=== PATIENT | male | born 1965 | race Caucasian/White ===

== ENCOUNTER 2017-03-21 10:08 | Day surgery (SDC) | payer OTHER ==
[2017-03-18 08:50] VITALS: BMI 31.0
[~2017-03-21 10:08] MED LIST: LACTATED RINGERS 1,000 ML IV SCH
[2017-03-21 10:34] VITALS: RESP 16; TEMP 96.5
[2017-03-21] MEDS ORDERED: LIDOCAINE 1% 20 ML VIAL (10MG/ML) FOR IV START INTRADERMA ONE (10:43)
[2017-03-21] MEDS ORDERED: LIDOCAINE 1% INJ 10MG/ML (20 ML MDV) ONE (11:06)
[2017-03-21] MEDS ORDERED: PROPOFOL 10 MG/ML 20 ML VIAL IV ONE (11:06)
--- NOTE | 2017-03-21 11:25 | P.GSHP ---
History of Present Illness H&P Date: 03/21/17 Chief Complaint: Screening colonoscopy This a 51-year-old male referred from Dr. mahan. Patient presents today for screening colonoscopy. He denies a significant GI complaints. - Constitutional Constitutional: Reports as per HPI Past Medical History Past Medical History: No Reported History History of Any Multi-Drug Resistant Organisms: None Reported Additional Past Surgical History / Comment(s): colonoscopy Past Anesthesia/Blood Transfusion Reactions: No Reported Reaction Past Psychological History: No Psychological Hx Reported Smoking Status: Never smoker Past Alcohol Use History: Occasional Past Drug Use History: None Reported - Past Family History Mother Family Medical History: No Reported History Medications and Allergies Home Medications Medication Instructions Recorded Confirmed Type Dextroamphetamine/Amphetamine 20 mg PO DAILY 03/18/17 03/21/17 History [Adderall] Allergies Allergy/AdvReac Type Severity Reaction Status Date / Time No Known Allergies Allergy Verified 03/18/17 08:46 Surgical - Exam Vital Signs Temp Pulse Resp BP Pulse Ox 96.5 F L 78 16 155/96 96 03/21/17 10:31 03/21/17 10:31 03/21/17 10:31 03/21/17 10:31 03/21/17 10:31 - General well developed, no distress - Eyes PERRL - ENT normal pinna, normal nares - Neck no masses - Respiratory normal expansion - Cardiovascular Rhythm: regular - Abdomen Abdomen: soft, non tender Assessment and Plan Plan: We'll perform screening colonoscopy.
--- NOTE | 2017-03-21 11:39 | P.OP ---
Date of Procedure: 03/21/17 Preoperative Diagnosis: Screening colonoscopy Postoperative Diagnosis: Diverticulosis Procedure(s) Performed: Colonoscopy Anesthesia: MAC Surgeon: Obdulio Irving Pathology: none sent Condition: stable Disposition: PACU Description of Procedure: The patient's placed on the endoscopy table in the lateral position. He received IV sedation. Digital rectal exam was performed which revealed no abnormalities. The flexible colonoscope was then placed patient anus and passed throughout the entire colon. The ileocecal valve was visualized. Cecum , ascending and transverse colon appeared normal. In the descending and sigmoid colon there was mild diverticulosis. Scope was then brought back into the rectum this appeared normal. Scope was withdrawn for patient.
[2017-03-21 12:08] VITALS: BP 139/82; PULSE 68
== END 2017-03-21 12:51 | disposition home or self-care (01) ==
LOC: ORWHC2ENDO 10:08
PROVIDERS: ATTEND Surgery
DX: Z12.11 Encounter for screening for malignant neoplasm of colon (principal); K57.30 Diverticulosis of large intestine without perforation or abscess without bleeding; Z79.899 Other long term (current) drug therapy
CPT/HCPCS: J2001; J2704; G0121

== ENCOUNTER 2018-07-31 14:34 | Emergency (ER) | payer OTHER ==
[2018-07-31 14:40] VITALS: RESP 18; TEMP 98.8
--- NOTE | 2018-07-31 15:13 | ED ---
Upper Extremity HPI - General Chief Complaint: Extremity Injury, Upper Stated Complaint: shoulder pain Time Seen by Provider: 07/31/18 14:43 Source: patient, RN notes reviewed Mode of arrival: ambulatory Limitations: no limitations - History of Present Illness Initial Comments: This is a 52-year-old male who presents to the emergency department with chief complaint of right shoulder injury. Patient states that yesterday he fell from his deck and landed onto his right shoulder. He states he has pain with movement and feels that he tore something within the shoulder itself. Patient states she does not believe that he broke anything. He denies any numbness or tingling. Denies any other injuries or trauma. Denies head, neck or back pain. Denies recent fevers or chills, chest pain or shortness of breath, abdominal pain, nausea or vomiting. - Related Data Home Medications Medication Instructions Recorded Confirmed Dextroamphetamine/Amphetamine 20 mg PO DAILY 03/18/17 03/21/17 [Adderall] Allergies Allergy/AdvReac Type Severity Reaction Status Date / Time No Known Allergies Allergy Verified 07/31/18 14:40 Review of Systems ROS Statement: Those systems with pertinent positive or pertinent negative responses have been documented in the HPI. ROS Other: All systems not noted in ROS Statement are negative. Past Medical History Past Medical History: No Reported History History of Any Multi-Drug Resistant Organisms: None Reported Additional Past Surgical History / Comment(s): colonoscopy Past Anesthesia/Blood Transfusion Reactions: No Reported Reaction Past Psychological History: No Psychological Hx Reported Smoking Status: Never smoker Past Alcohol Use History: Occasional Past Drug Use History: None Reported - Past Family History Mother Family Medical History: No Reported History General Exam - General Exam Comments Initial Comments: General: Awake and alert, well-developed; in no apparent distress. HEENT: Head atraumatic, normocephalic. Pupils are equal, round and reactive to light. Extraocular movements intact. Oropharynx moist without erythema or exudate. Neck: Supple. Normal ROM. Cardiovascular: Regular rate and rhythm. No murmurs, rubs or gallops. Chest symmetrical. Respiratory: Lungs clear to auscultation bilaterally. No wheezes, rales or rhonchi. Normal respiratory effort with no use of accessory muscles. Musculoskeletal: Normal passive range of motion of the right shoulder, however active range of motion is limited with abduction, abduction, flexion and internal rotation. Sensation is intact. Radial pulses are 2+ equal and palpable bilaterally. Skin: [place], warm and dry without rashes or lesions. Neurological: Alert and oriented x3. CN II-XII grossly intact. Speech is fluent and answers are appropriate. No focal neuro deficits. Psychiatric: Normal mood and affect. No overt signs of depression or anxiety noted. Limitations: no limitations Course Vital Signs 07/31/18 14:37 Temperature 98.8 F Pulse Rate 99 Respiratory 18 Rate Blood Pressure 152/101 O2 Sat by Pulse 97 Oximetry Medical Decision Making - Medical Decision Making This is a 52-year-old male who presents to the emergency department with chief complaint of right shoulder injury. Patient reports falling onto his right shoulder yesterday. Patient has difficulty with range of motion of the right shoulder due to pain. Shoulder x-ray revealed no acute abnormalities. Patient will be given contact information to follow-up with orthopedics. Vital signs are stable and he is in acute distress. He will be discharged home at this time. Recommend rest, ice, Tylenol or Motrin as needed for pain. Patient is in agreement with plan and voices understanding. All questions were answered. - Radiology Data Radiology results: report reviewed, image reviewed X-ray right shoulder impression: Negative right shoulder exam. Disposition Clinical Impression: Strain of shoulder Disposition: HOME SELF-CARE Condition: Good Instructions: Rotator Cuff Injury (ED), Shoulder Sprain (ED) Additional Instructions: Please take medications as prescribed. Please follow up with primary care provider within 1-2 days. Return to emergency department if symptoms should worsen or any concerns arise. Is patient prescribed a controlled substance at d/c from ED?: No Referrals: Mary Lilly DO [Primary Care Provider] - 1-2 days Casa Lerner MD [STAFF PHYSICIAN] - 1-2 days Time of Disposition: 15:31
--- NOTE | 2018-07-31 15:16 | XR ---
EXAMINATION TYPE: XR shoulder complete RT DATE OF EXAM: 07/31/2018 COMPARISON: NONE HISTORY: Shoulder pain TECHNIQUE: 3 views FINDINGS: There is no fracture nor dislocation. Joint spaces are normal. There are no pathologic calc ifications. IMPRESSION: Negative right shoulder exam.
[2018-07-31 15:53] VITALS: BP 128/90; PULSE 93
== END 2018-07-31 15:51 | disposition home or self-care (01) ==
LOC: EC 14:34
DX: S46.911A Strain of unspecified muscle, fascia and tendon at shoulder and upper arm level, right arm, initial encounter (principal); Z79.899 Other long term (current) drug therapy; W08.XXXA Fall from other furniture, initial encounter
CPT/HCPCS: 99283

== ENCOUNTER 2021-11-14 08:45 | Emergency (ER) | payer OTHER ==
[2021-11-14 08:51] VITALS: BP 141/99; PULSE 94; RESP 17; TEMP 97.8
[2021-11-14] MEDS ORDERED: LIDOCAINE 1%-EPI 1:100,000 20 ML VIAL SQ STA (09:19)
[2021-11-14] MEDS ORDERED: DIPH,PERTUS(ACELL)TETVAC-LF 0.5 ML VIAL IM ONE (09:24)
--- NOTE | 2021-11-14 09:29 | ED ---
General Adult HPI - General Chief complaint: Extremity Injury, Lower Stated complaint: IHS-Rt Leg Lac Time Seen by Provider: 11/14/21 09:10 Source: patient Mode of arrival: ambulatory Limitations: no limitations - History of Present Illness Initial comments: Dictation was produced using [employer] dictation software. please excuse any grammatical, word or spelling errors. 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 He fell. He struck the anterior part of his right lower leg on machine. He was wearing his work pants and work shoes. He was at home didn't think much of it. He looked at his wound when he got home so that it was bleeding. Patient said he comes in emergency department. Patient on telemetry sure when his last tetanus vaccine was. He thinks that perhaps it may have been within the last 10 years. The ROS documented in this emergency department record has been reviewed and confirmed by me. Those systems with pertinent positive or negative responses have been documented in the HPI. All other systems are other negative and/or noncontributory. PHYSICAL EXAM: General Impression: Alert and oriented x3, not in acute distress HEENT: Normocephalic atraumatic, extra-ocular movements intact, pupils equal and reactive to light bilaterally, mucous membranes moist. Cardiovascular: Heart regular rate and rhythm Chest: Able to complete full sentences, no retractions, no tachypnea Musculoskeletal: Pulses present and equal in all extremities, no peripheral edema Motor: no focal deficits noted Neurological: CN II-XII grossly intact, no focal motor or sensory deficits noted Skin: Intact with no visualized rashes Right lower extremity: 8 cm laceration to the distal anterior proximal medial tibia Psych: Normal affect and mood ED course: 56-year-old male presents emergency Department with a right anterior lower extremity laceration. Vital signs upon arrival are within acceptable limits.X-rays unremarkable. No foreign bodies or occult fractures. Lacerations repaired with gauri. Patient given prophylactic antibiotics. Patient counseled on wound care. Said to have gauri removed in approximately 10 days. - Related Data Home Medications Medication Instructions Recorded Confirmed Dextroamphetamine/Amphetamine 20 mg PO DAILY 03/18/17 03/21/17 [Adderall] Previous Rx's Medication Instructions Recorded Cephalexin [Keflex] 500 mg PO Q6HR 5 Days #20 cap 11/14/21 Allergies Allergy/AdvReac Type Severity Reaction Status Date / Time No Known Allergies Allergy Verified 11/14/21 08:51 Review of Systems ROS Statement: Those systems with pertinent positive or pertinent negative responses have been documented in the HPI. ROS Other: All systems not noted in ROS Statement are negative. Past Medical History Past Medical History: Diabetes Mellitus History of Any Multi-Drug Resistant Organisms: None Reported Additional Past Surgical History / Comment(s): colonoscopy, rotator cuff Past Anesthesia/Blood Transfusion Reactions: No Reported Reaction Past Psychological History: No Psychological Hx Reported Smoking Status: Never smoker Past Alcohol Use History: Occasional Past Drug Use History: None Reported - Past Family History Mother Family Medical History: No Reported History General Exam Limitations: no limitations Course Vital Signs 11/14/21 08:46 Temperature 97.8 F Pulse Rate 94 Respiratory 17 Rate Blood Pressure 141/99 O2 Sat by Pulse 97 Oximetry Procedures - Laceration Laceration #1 Consent Obtained: verbal consent Indication: laceration Site: lower extremity (distal anterior tibia, 8 cm) Description: linear Depth: simple, single layer Anesthetic Used: lidocaine 1%, with epi Anesthesia Technique: local infiltration Size of Sutures: other (gauri, 8) Technique: simple, interrupted Patient Tolerated Procedure: well Disposition Clinical Impression: Laceration Disposition: HOME SELF-CARE Condition: Fair Instructions (If sedation given, give patient instructions): Laceration (ED) Additional Instructions: staple removal in 10 days. You can come back to our ER, or go to primary care doc or urgent care for removal seek medical attention w redness, drainage or signs of infection Prescriptions: Cephalexin [Keflex] 500 mg PO Q6HR 5 Days #20 cap Is patient prescribed a controlled substance at d/c from ED?: No Referrals: Mary Lilly DO [Primary Care Provider] - 1-2 days
--- NOTE | 2021-11-14 09:43 | XR ---
Right tibia and fibula. HISTORY: Laceration following fall. COMPARISON: None TECHNIQUE: 2 views of the right tibia and fibula were obtained. FINDINGS: There is no fracture or focal intraosseous abnormality. There is no periosteal reaction or cortical d isruption There is no radiopaque foreign body or abnormal soft tissue calcification or gas. IMPRESSION: No significant abnormality seen.
[2021-11-14] MEDS ORDERED: ACET/COD 300 MG/30 MG STARTER PACK 6 TAB BTL PO STA (10:02)
== END 2021-11-14 10:12 | disposition home or self-care (01) ==
LOC: EC 08:45
DX: S81.811A Laceration without foreign body, right lower leg, initial encounter (principal); E11.9 Type 2 diabetes mellitus without complications; Z23 Encounter for immunization; W31.9XXA Contact with unspecified machinery, initial encounter; Y99.0 Civilian activity done for income or pay
CPT/HCPCS: 12004; 90471; 90715; 99283

== ENCOUNTER 2022-05-27 05:36 | Emergency (ER) | payer OTHER ==
[2022-05-27 05:42] VITALS: BP 150/99; PULSE 68; RESP 18; TEMP 97.7
--- NOTE | 2022-05-27 05:58 | ED ---
Recheck HPI - General Chief Complaint: Recheck/Abnormal Lab/Rx Stated Complaint: Recheck Time Seen by Provider: 05/27/22 05:45 Source: patient, RN notes reviewed, old records reviewed Mode of arrival: ambulatory Limitations: no limitations - History of Present Illness Initial Comments: This is a 56-year-old male to the emergency department for evaluation. Patient presents today for evaluation regards to suture removal suture removal for finger laceration. Eyes any redness warmth or erythema, able to move finger without difficulty. MD Complaint: wound re-check -: week(s) Initial Visit For: laceration Returns Today for: staple/Stitch removal, wound recheck Symptoms Since Prior Visit: no new symptoms Context: planned re-check Associated Symptoms: none Treatments Prior to Arrival: dressings, splint(s) - Related Data Home Medications Medication Instructions Recorded Confirmed Dextroamphetamine/Amphetamine 20 mg PO DAILY 03/18/17 03/21/17 [Adderall] Previous Rx's Medication Instructions Recorded Cephalexin [Keflex] 500 mg PO Q6HR 5 Days #20 cap 11/14/21 Allergies Allergy/AdvReac Type Severity Reaction Status Date / Time No Known Allergies Allergy Verified 05/27/22 05:41 Review of Systems ROS Statement: Those systems with pertinent positive or pertinent negative responses have been documented in the HPI. ROS Other: All systems not noted in ROS Statement are negative. Past Medical History Past Medical History: Diabetes Mellitus History of Any Multi-Drug Resistant Organisms: None Reported Past Surgical History: Orthopedic Surgery Additional Past Surgical History / Comment(s): colonoscopy, rotator cuff Past Anesthesia/Blood Transfusion Reactions: No Reported Reaction Past Psychological History: No Psychological Hx Reported Smoking Status: Never smoker Past Alcohol Use History: Occasional Past Drug Use History: None Reported - Past Family History Mother Family Medical History: No Reported History General Exam Limitations: no limitations General appearance: alert, in no apparent distress Head exam: Present: atraumatic, normocephalic, normal inspection Eye exam: Present: normal appearance, PERRL, EOMI. Absent: scleral icterus, conjunctival injection, periorbital swelling ENT exam: Present: normal exam, mucous membranes moist Neck exam: Present: normal inspection. Absent: tenderness, meningismus, lymphadenopathy Respiratory exam: Present: normal lung sounds bilaterally. Absent: respiratory distress, wheezes, rales, rhonchi, stridor Cardiovascular Exam: Present: regular rate, normal rhythm, normal heart sounds. Absent: systolic murmur, diastolic murmur, rubs, gallop, clicks GI/Abdominal exam: Present: soft, normal bowel sounds. Absent: distended, tenderness, guarding, rebound, rigid Extremities exam: Present: normal inspection, full ROM, normal capillary refill, other (Patient does have significant finger laceration with unknown number of sutures, multiple). Absent: tenderness, pedal edema, joint swelling, calf tenderness Back exam: Present: normal inspection Neurological exam: Present: alert, oriented X3, CN II-XII intact Psychiatric exam: Present: normal affect, normal mood Skin exam: Present: warm, dry, intact, normal color. Absent: rash Course Vital Signs 05/27/22 05:38 Temperature 97.7 F Pulse Rate 68 Respiratory 18 Rate Blood Pressure 150/99 O2 Sat by Pulse 97 Oximetry - Reevaluation(s) Reevaluation #1: 05/27/22 Records reviewed Reevaluation #2: 05/27/22 patient informed of results, questions have been answered Medical Decision Making - Medical Decision Making 56 male presents for wound recheck and suture removal, have removed all sutures wound is healing appropriately discharged from the wound secondary to some loosely approximated wound edges. Patient can be discharged home Disposition Clinical Impression: Visit for suture removal, Encounter for wound re-check Disposition: HOME SELF-CARE Condition: Good Instructions (If sedation given, give patient instructions): Stitches Removal (ED) Is patient prescribed a controlled substance at d/c from ED?: No Referrals: Mary Lilly DO [Primary Care Provider] - 1-2 days
== END 2022-05-27 06:53 | disposition home or self-care (01) ==
LOC: EC 05:36
DX: Z48.02 Encounter for removal of sutures (principal); E11.9 Type 2 diabetes mellitus without complications
CPT/HCPCS: 99282